=== PATIENT | male | born 1945 | race Caucasian/White ===

== ENCOUNTER 2018-12-16 07:22 | Emergency (ER) | payer BC ==
[~2018-12-16] VITALS: Ht 182.9 cm; Wt 90.7 kg
[~2018-12-16 07:22] MED LIST: ACYCLOVIR400 MG ORAL; BACITRACIN15 GM TOPIC; BACTRIM-DS1 EA ORAL; HEART MED
[2018-12-16 07:32] VITALS: BP 123/76
--- NOTE | 2018-12-16 07:32 | NUR ---
ED Nurse Note: Pt was brought in by EMS from home due to respiratory distress x 3 days. Pt came in with CPAP with 89 % oxygen. Albuterol given by EMS en route. Hx of enlarged heart. AAO x4, follows commands with SOB at rest and upon exertion. Lungs are clear. Noted bilateral lower leg redness and non pitting edema.
--- NOTE | 2018-12-16 07:38 | NUR ---
ED Nurse Note: Collected blood specimen then sent.
[2018-12-16] MEDS ORDERED: POTASSIUM CHLO20 ME3 PO (07:39)
[2018-12-16] MEDS ORDERED: XARELTO10 MG ORAL (07:39)
[2018-12-16] MEDS ORDERED: DIGOXIN250 MCG ORAL (07:39)
--- NOTE | 2018-12-16 07:39 | NUR ---
ED Nurse Note: Radiology at the bed side for CXR.
[2018-12-16] MEDS ORDERED: GLIPIZIDE5 MG ORAL (07:41)
[2018-12-16] MEDS ORDERED: CARVEDILOL25 MG ORAL (07:41)
[2018-12-16] MEDS ORDERED: LISINOPRIL20 MG ORAL (07:41)
[2018-12-16] MEDS ORDERED: FUROSEMIDE40 MG ORAL (07:41)
[2018-12-16] MEDS ORDERED: CICLODAN 0.77%544 GM TP (07:41)
[2018-12-16] MEDS ORDERED: ATORVASTATIN CA20 MG ORAL (07:41)
--- NOTE | 2018-12-16 07:46 | Emergency Room Report ---
History of Present Illness General Chief Complaint: Dyspnea/Respdistress Present Illness HPI 73-year-old male history of critical aortic stenosis, he was diagnosed at [facility], he was going to undergo TAVR however he was not a candidate he was to undergo open heart surgery for aortic valve replacement, patient then refused, he presents with acute shortness of breath that started 3 days ago, he states that is worsened with exertion, alleviated with rest, he denies any nausea vomiting or chest pain, patient presents via EMS for acute shortness of breath. 3 days prior to arrival, severity severe, aggravated with exertion, alleviated with rest, Allergies: Coded Allergies: No Known Allergies (Unverified , 11/02/13) Patient History Limited by: medical condition - Dyspneic Past Medical History: see triage record Reviewed Nursing Documentation: PMH: Agreed; PSxH: Agreed Nursing Documentation-PMH Hx Cardiac Problems: Yes - cardiomegaly , aortic stenosis Hx Diabetes: Yes Review of Systems All Other Systems: limited - Secondary to patient's shortness of breath, difficulty speaking full sentences Physical Exam Vital Signs Date Time Temp Pulse Resp B/P (MAP) Pulse Ox O2 Delivery O2 Flow Rate FiO2 12/16/18 07:22 90 30 123/76 (92) 89 Bi-pap Sp02 EP Interpretation: reviewed, normal General Appearance: alert, moderate distress Head: normocephalic, atraumatic Eyes: bilateral eye PERRL, bilateral eye EOMI ENT: uvula midline, moist mucus membranes Neck: supple, thyroid normal, supple/symm/no masses Respiratory: lungs clear, other - Dyspneic, no wheezes, no crackles, unable to speak full sentences Cardiovascular #1: normal peripheral pulses, no murmur, tachycardia, other - Murmur heard, crescendo decrescendo right side Gastrointestinal: non tender, soft, no guarding, no rebound Musculoskeletal: normal inspection Neurologic: alert, oriented x3 Psychiatric: mood/affect normal Skin: no rash, warm/dry Procedures Critical Care Time Critical Care Time Given the critical condition in which the patient arrived, the patient was immediately assessed by myself and the nurse, and cardiac monitoring initiated due to the potential for rapid decompensation of the patient's clinical condition. During the course of the patient's stay, I spent a considerable amount of time at the bedside performing serial re-evaluations of the patient's hemodynamic and clinical status because of the recognized potential threat to life or limb in this condition. I then had a chance to review not only all of the available current laboratory and radiographic studies obtained today, but I also reviewed old records available to me at the time. Additionally, any ancillary information available including charge account clerk records were reviewed. Sequential vital signs were obtained. Critical Care time of 34 minutes was performed exclusive of billable procedures. Patient required optimization of preload, echo was reviewed at bedside, patient was at risk of cardiac decompensation due to critical aortic stenosis lesion she was initially tachypneic short of breath, BiPAP was eventually removed, coordination with [facility] Medical Decision Making Diagnostic Impression: Primary Impression: Respiratory distress Additional Impression: Critical aortic valve stenosis ER Course 73-year-old male presents with acute shortness of breath, history of critical aortic stenosis, patient was a candidate for open heart surgery, not a candidate for TAVR, Fluid started Reeval 8:39AM patient comfortable continues to be short of breath Reevaluation 8:50 AM, patient on echo has a aortic valve area less than 0.8 cm, critical lesion Patient with elevated troponin most likely secondary to demand ischemia, plan is to transfer to [facility] for definitive treatment Will hold off on anticoagulation, antiplatelet agents, patient may receive surgery for his aortic valve, will provide patient with gentle fluid boluses to ensure a favorable gradient optimisation of preload Spoke with Dr. chi 9:15AM they will obtain a hospitalist [facility] reevaluation 9:37am, patient comfortable sitting up in bed, heart rate reduced to 82, patient more comfortable Patient accepted by Dr. Jonas at 10:27AM PCU bed [facility] Aortic Valve 0.61cm area critical aortic stenosis Laboratory Tests Test 12/16/18 07:30 12/16/18 08:11 White Blood Count 14.5 K/UL (4.8-10.8) H Red Blood Count 4.96 M/UL (4.70-6.10) Hemoglobin 16.2 G/DL (14.2-18.0) Hematocrit 48.3 % (42.0-52.0) Mean Corpuscular Volume 97 FL (80-99) Mean Corpuscular Hemoglobin 32.7 PG (27.0-31.0) H Mean Corpuscular Hemoglobin Concent 33.6 G/DL (32.0-36.0) Red Cell Distribution Width 12.8 % (11.6-14.8) Platelet Count 216 K/UL (150-450) Mean Platelet Volume 7.5 FL (6.5-10.1) Neutrophils (%) (Auto) 77.5 % (45.0-75.0) H Lymphocytes (%) (Auto) 15.0 % (20.0-45.0) L Monocytes (%) (Auto) 6.7 % (1.0-10.0) Eosinophils (%) (Auto) 0.3 % (0.0-3.0) Basophils (%) (Auto) 0.5 % (0.0-2.0) Prothrombin Time 15.9 SEC (9.30-11.50) H Prothrombin Time INR 1.5 (0.9-1.1) H PTT 45 SEC (23-33) H Sodium Level 140 MMOL/L (136-145) Potassium Level 4.1 MMOL/L (3.5-5.1) Chloride Level 103 MMOL/L (98-107) Carbon Dioxide Level 22 MMOL/L (21-32) Anion Gap 15 mmol/L (5-15) Blood Urea Nitrogen 21 mg/dL (7-18) H Creatinine 1.7 MG/DL (0.55-1.30) H Estimate Glomerular Filtration Rate mL/min (>60) Glucose Level 255 MG/DL (74-106) H Lactic Acid Level 4.50 mmol/L (0.4-2.0) H Calcium Level 8.7 MG/DL (8.5-10.1) Total Bilirubin Pending Aspartate Amino Transferase (AST) Pending Alanine Aminotransferase (ALT) Pending Alkaline Phosphatase Pending Total Creatine Kinase Pending Creatine Kinase MB Pending Troponin I 0.103 ng/mL (0.000-0.056) Pro-B-Type Natriuretic Peptide Pending Total Protein Pending Albumin Pending Globulin Pending Lipase Pending Arterial Blood pH 7.419 (7.350-7.450) Arterial Blood Partial Pressure CO2 27.1 mmHg (35.0-45.0) L Arterial Blood Partial Pressure O2 53.6 mmHg (75.0-100.0) L Arterial Blood HCO3 17.1 mmol/L (22.0-26.0) *L Arterial Blood Oxygen Saturation 87.3 % (95-100) *L Arterial Blood Base Excess -5.5 (-2-2) L Devan Test Positive EKG Diagnostic Results EKG Time: 07:26 EP Interpretation: atrial fib, rate 104, qtc 496, no acute st elev Rate: tachycardiac Rhythm: other - afib ST Segments: other - depressions v5, v6 II Rhythm Strip Diag. Results Rhythm Strip Time: 10:32 EP Interpretation: yes Rate: 84 Rhythm: NSR, no PVC's, no ectopy Chest X-Ray Diagnostic Results Chest X-Ray Diagnostic Results : Chest X-Ray Ordered: Yes # of Views/Limited/Complete: 1 View Indication: Shortness of Breath EP Interpretation: Yes Interpretation: other - Cardiomegaly, no overt pulmonary edema Impression: Other - Cardiomegaly, no overt pulmonary edema Electronically Signed by: Román Camp MD CT/MRI/US Diagnostic Results CT/MRI/US Diagnostic Results : Imaging Test Ordered: TTE Impression Critical aortic stenosis lesion Last Vital Signs Date Time Temp Pulse Resp B/P (MAP) Pulse Ox O2 Delivery O2 Flow Rate FiO2 12/16/18 07:22 90 30 123/76 (92) 89 Bi-pap Disposition: [facility] Condition: Stable Román Camp MD Dec 16, 2018 07:46
--- NOTE | 2018-12-16 08:06 | NUR ---
ED Nurse Note: Called RT for ABG.
--- NOTE | 2018-12-16 08:12 | NUR ---
ED Nurse Note: RT at the bed side for ABG.
[2018-12-16 08:16] LABS: BASOPHILS % (AUTO) 0.5 % (0.0-2.0); EOSINOPHILS % (AUTO) 0.3 % (0.0-3.0); HEMATOCRIT 48.3 % (42.0-52.0); HEMOGLOBIN 16.2 G/DL (14.2-18.0); MEAN CORPUSCULAR VOLUME 97 FL (80-99); MONOCYTES % (AUTO) 6.7 % (1.0-10.0); NEUTROPHILS % (AUTO) 77.5 % (45.0-75.0); PLATELET COUNT 216 K/UL (150-450); RED BLOOD COUNT 4.96 M/UL (4.70-6.10); RED CELL DISTRIBUTION WIDTH 12.8 % (11.6-14.8); WHITE BLOOD COUNT 14.5 K/UL (4.8-10.8)
[2018-12-16 08:30] LABS: INR 1.5 (0.9-1.1)
--- NOTE | 2018-12-16 08:43 | NUR ---
ED Nurse Note: 2D Echo doppler done at the bed side.
--- NOTE | 2018-12-16 08:45 | Diagnostic Imaging Report ---
EXAM: XR Chest, 1 View CLINICAL HISTORY: CP TECHNIQUE: Frontal view of the chest. COMPARISON: No relevant prior studies available. FINDINGS: Lungs: Mild central vascular congestion. No focal consolidation. Pleural space: Unremarkable. No pneumothorax. Heart: Heart is upper limits normal. Mediastinum: Unremarkable. Bones/joints: Unremarkable. IMPRESSION: Mild central vascular congestion. No focal consolidation.
[2018-12-16 08:47] LABS: ANION GAP 15 mmol/L (5-15); BLOOD UREA NITROGEN 21 mg/dL (7-18); CALCIUM 8.7 MG/DL (8.5-10.1); CARBON DIOXIDE 22 MMOL/L (21-32); CHLORIDE 103 MMOL/L (98-107); CREATININE 1.7 MG/DL (0.55-1.30); POTASSIUM 4.1 MMOL/L (3.5-5.1); SODIUM 140 MMOL/L (136-145)
[2018-12-16 08:54] LABS: ALANINE AMINOTRANSFERASE 27 U/L (12-78); ALBUMIN 3.6 G/DL (3.4-5.0); ALBUMIN/GLOBULIN RATIO 0.9 (1.0-2.7); ALKALINE PHOSPHATASE 82 U/L (46-116); ASPARTATE AMINO TRANSFERASE 30 U/L (15-37); BILIRUBIN,TOTAL 1.2 MG/DL (0.2-1.0); CKMB 1.8 NG/ML (0.0-3.6); CREATINE KINASE 60 U/L (26-308)
[2018-12-16 09:04] VITALS: BP 112/70
--- NOTE | 2018-12-16 09:04 | NUR ---
ED Nurse Note: Repeat lactic acid specimen sent.
[2018-12-16 09:05] LABS: BILIRUBIN,DIRECT 0.5 MG/DL (0.0-0.3)
[2018-12-16] MEDS ORDERED: Bacitracin Oint UD TOPIC ONE ×2 (09:09→09:30)
--- NOTE | 2018-12-16 10:45 | NUR ---
ED Nurse Note: Tried to call for report to [facility]. Spoke to Nicci and refsued to received report at this time and states it's too early.
--- NOTE | 2018-12-16 10:54 | NUR ---
ED Nurse Note: Kept pt on NPO. Pt is awake that he can not drink or eat per ER MD order.
[2018-12-16 10:55] VITALS: BP 108/61
--- NOTE | 2018-12-16 11:39 | NUR ---
ED Nurse Note: Report given to Candido PARKER of [facility].
[2018-12-16 13:00] VITALS: BP 115/75
--- NOTE | 2018-12-16 13:35 | Cardiology Report ---
APPROVED REPORT EXAM: Two-dimensional and M-mode echocardiogram with Doppler and color Doppler. INDICATION Palpitations Critical aortic stenosis M-Mode DIMENSIONS IVSd2.0 (0.7-1.1cm)Left Atrium (MM)4.0 (1.6-4.0cm) LVDd3.3 (3.5-5.6cm)Aortic Root4.8 (2.0-3.7cm) PWd2.2 (0.7-1.1cm)Aortic Cusp Exc.0.5 (1.5-2.0cm) LVDs2.4 (2.5-4.0cm) PWs2.3 cm Technically difficult study due to poor acoustic windows. Study quality precludes accurate assessment of regional wall motion. Normal left ventricular chamber size, systolic function and wall motion excep diastilic flattening of vs suggestive of RV pressure over load Left ventricular ejection fraction estimated to be 55 %. Moderate left ventricular hypertrophy. No evidence of pericardial effusion. Mild left atrial enlargement. Severe right atrial and right ventricular enlargement. Aortic valve calcification with decreased cusp excursion c/w SEVERE aortic stenosis. Mild aortic root dilatation. Mildly thickened mitral valve leaflets with normal excursion. Mild mitral annulus and aortic root calcification. Normal pulmonic valve structure. Normal tricuspid valve structure. IVC dilated at 3.0 cm without physiological collapse, estimated RAP is 15 mmHg. A color flow and spectral Doppler study was performed and revealed: Mild aortic regurgitation. Peak aortic valve gradient of 82 mmHg and a mean of 44 mmHg. Aortic valve area 0.6 cm2 calculated by continuity equation. Mild to moderate mitral regurgitation. Mitral inflow non diagnostic Mild to moderate tricuspid regurgitation. Tricuspid systolic velocities suggests peak right ventricular systolic pressure of 74 mmHg, consistent with severe pulmonary hypertension. Mild to moderate pulmonic regurgitation present.
--- NOTE | 2018-12-16 13:58 | NUR ---
ED Nurse Note: Report given to [facility]. Belongings sent with pt. Stable for transfer.
[2018-12-16 14:00] VITALS: BP 118/77
== END 2018-12-16 14:00 | disposition short-term general hospital (02) ==
LOC: EDBD 07:22 → EMR 08:02 → EDBEDREQ 08:09 → EMR 14:00
DX: R06.03 Acute respiratory distress (principal); I35.8 Other nonrheumatic aortic valve disorders; E11.9 Type 2 diabetes mellitus without complications; I48.91 Unspecified atrial fibrillation; R00.0 Tachycardia, unspecified
CPT/HCPCS: 36415; 36600; 71045; 80053; 82248; 82550; 82553; 82803; 83605; 83690; 83880; 84484; 85025; 85610; 85730; 86850; 86900; 86901; 87040; 93005; 93306; 99291; J7040